=== PATIENT | male | born 1985 | race Caucasian/White ===

== ENCOUNTER 2017-03-11 00:51 | Emergency (ER) | payer SELFPAY ==
[~2017-03-11] VITALS: Ht 180.3 cm; Wt 72.6 kg
[~2017-03-11 00:51] MED LIST: CLEOCIN HCL150 MG PO; FLONASE ALLERG9.9 ML NAS; MOBIC15 MG PO; PREDNISONE10 MG PO; VICODIN 500 MG-1 TAB PO; ZITHROMAX250 MG PO
[2017-03-11] MEDS ORDERED: CLINDAMYCIN HC300 MG PO (01:41)
== END 2017-03-11 01:44 | disposition home or self-care (01) ==
LOC: ED 00:51
DX: K02.9 Dental caries, unspecified (principal); D64.9 Anemia, unspecified; F17.200 Nicotine dependence, unspecified, uncomplicated; F11.10 Opioid abuse, uncomplicated; F19.10 Other psychoactive substance abuse, uncomplicated; Z88.0 Allergy status to penicillin

== ENCOUNTER 2018-05-23 14:48 | Emergency (ER) | payer OTHER ==
[~2018-05-23] VITALS: Ht 180.3 cm; Wt 68.0 kg
[~2018-05-23 14:48] MED LIST changes: +CLINDAMYCIN HC300 MG PO
[2018-05-23] MEDS ORDERED: 'CLONIDINE0.1 MG PO (15:27)
== END 2018-05-23 15:30 | disposition home or self-care (01) ==
LOC: ED 14:48
DX: F11.10 Opioid abuse, uncomplicated (principal); R25.2 Cramp and spasm; M79.604 Pain in right leg; M79.605 Pain in left leg; R68.83 Chills (without fever); F17.200 Nicotine dependence, unspecified, uncomplicated; Z88.0 Allergy status to penicillin; Z79.899 Other long term (current) drug therapy; Z79.2 Long term (current) use of antibiotics